=== PATIENT | female | born 2000 | race Caucasian/White ===

== ENCOUNTER 2025-07-09 02:21 | Emergency (ER) | payer MEDICAID, SELFPAY ==
[2025-07-09 02:23] VITALS: BP 123/75; PULSE 105; RESP 15; TEMP 36.7; O2SAT 98; BMI 28.4
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
== END 2025-07-09 03:23 | disposition left against medical advice (07) ==
PROVIDERS: Emergency Provider Emergency Medicine
DX: L29.2 Pruritus vulvae (principal)
CPT/HCPCS: 99281

== ENCOUNTER → 2025-09-19 10:04 | Outpatient (BNV) | payer OTHER, SELFPAY ==
--- NOTE | 2025-09-19 10:04 | A.OFFVIS_ITS ---
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 she is reluctant to have too much information shared between anyone -but states understanding that records are shared between her doctor and I confidentially. She discusses feeling that she wants things to be private. [facility] PCP - appt pending w/ Dr at [facility]. 10/02 - no PMH issues to report MOOD: she mostly needs help w/ anxiety/panic and depression - things are getting very hard for her since she went off medications . these were gotten from [place] doctor. She has picture of medications - on her phone off her patient portal. she occasionally takes her mothers medicaitons (name unknown) - helps her when she is panicking - takes one and she eats and falls asleep and this feels important and helpful. she declines a lot of conversation about her anxiety - I don't like to talk much about it - makes me panic . She will begin w/ therapist who comes to our program as soon as they can establish a date. She very much wants her medications filled as she is finding it hard to function and get to school no covid vaccinations received- never wanted. MEDS:Citalopram 20mg once a day, and hydroxyzine 10mg as needed for panic attacks BC:she was on depo for control but hasn't continued this bc she wasn't getting her period - she doesn't want to discuss control much at this time -once her period resumes she will return for this conversation or will go to gynecology/pcp for more help when she is ready.reassured that likely all is ok but she wants it checked anyway. she had a pap done in may and was given Depo then - it 09/07/25 ETOH: no DRUGS: no (panic attacks from cannabis), CIG: no smoke - but she vapes nicotine Living on her own w/ child - partner occasionally spends the night - she feels it's a good situation for her and that he treats her well. she is not connected w/ the baby's father [facility] Medical History (Updated 09/19/25 @ 10:28 by EVA Zepeda) Moderate recurrent major depression Anxiety disorder, unspecified Panic anxiety syndrome Family History (System 05/03/25 @ 13:22 by Ana Piedra) Mother No problems noted. Father No problems noted. Daughter No problems noted. Brother No problems noted. Brother No problems noted. Brother No problems noted. Brother No problems noted. Sister No problems noted. Sister No problems noted. Review of Systems Const Details: Counseling visit: All systems reviewed & are unremarkable except as noted in HPI and below Reports as per HPI Resp Reports as per HPI GI Reports as per HPI Musc Reports as per HPI Neuro Reports as per HPI Psych Reports as per HPI Physical Exam Const General: cooperative, healthy appearing and no acute distress Nutritional Appearance: well nourished Orientation/consciousness: oriented to person Limitations: no limitations HEENT Other: wnl Eyes Other: wnl Chest Other: easy breathing Resp Effort & Inspection: able to speak in complete sentences Skin Other: normal in appearance Neuro General: oriented to person Psych Other: see HPI Mental Status: mental status grossly normal Speech and movement: Clear speech present Attitude: cooperative Thought process: Normal thought process present Assessment & Plan Assessment & Plan (1) Moderate recurrent major depression: Code(s): F33.1 - Major depressive disorder, recurrent, moderate Category: Medical (2) control counseling: Code(s): Z30.09 - Encounter for other general counseling and advice on contraception Category: Medical (3) Counseling and coordination of care: Code(s): Z71.89 - Other specified counseling Category: Medical (4) Anxiety disorder, unspecified: Code(s): F41.9 - Anxiety disorder, unspecified Category: Medical (5) Panic anxiety syndrome: Code(s): F41.0 - Panic disorder [episodic paroxysmal anxiety] Category: Medical Plan 1) Anxiety/Depression: I will refill her medications and she has given permission for me to talk to her onsite counselor to help her excelsior picker the medications at the pharmacy. she has an appt 10/02 w/ new PCP - since moving to this area and she expects that he will excelsior picker the prescription longer term but really feels bad having stopped meds and needs refills 2) control: she didn't want to have an extensive conversation about BC options as she is worried something is wrong (reassurance that irreg menses can happen w/ depo) she wants PCP to examine her to reassure her that all is ok. discussed that this might not be able to happen on first visit - or a referral might be made. once she has period - she would like to talk about bc. refuses test - feels it's not the issue. 3)consultation w/ her counselor - within the guidelines of her privacy that she has asked for 4)I did clarify w/ her that her doctor and I work under the same medical system and therefore my notes are readable to him and vs vs. She is ok w/ that. Appreciates the communication as long as it is private and for medical support reasons. Medications: New hydroxyzine HCl 10 mg PO ONCE PRN 7 tabs 0RF anxiety citalopram 20 mg PO DAILY 14 tabs 0RF 14 days Coding Level of Care Code New Pt Level 5 (42694) Diagnoses Moderate recurrent major depression F33.1 control counseling Z30.09 Counseling and coordination of care Z71.89 Anxiety disorder, unspecified F41.9 Panic anxiety syndrome F41.0 Additional Codes PHQ-9 - 35942 - PHQ-9 Billing: Yes ([id number]) CRAFFT Assessment Charge - Crafft: CRAFFT [id number] ([id number]) MILAN-7 Assessment Billing - MILAN-7 Assessment Tool: MILAN-7 Assessment 85961 ([id number]) Time Spent (min) 60 Comment extensive counseling and coordination of care PHQ-9 Over the last 2 weeks, how often have you been bothered by any of the following problems? 1. Little interest or pleasure in doing things: several days 2. Feeling down, depressed, or hopeless: not at all 3. Trouble falling or staying asleep, or sleeping too much: more than half the days 4. Feeling tired or having little energy: more than half the days 5. Poor appetite or overeating: several days 6. Feeling bad about yourself - or that you are a failure or have let yourself or your family down: not at all 7. Trouble concentrating on things, such as reading the newspaper or watching television: more than half the days 8. Moving or speaking so slowly that other people could have noticed. Or the opposite - being so fidgety or restless that you have been moving around a lot more than usual: not at all 9. Thoughts that you would be better off or of hurting yourself in some way: not at all Total score: 8 Depression Screening Interpretation: Positive Depression Screening Done: Yes 78394 - PHQ-9 Billing: Yes Source: Developed by Drs. Antoine Reaves, Katelin Acosta, Parag Nj and colleagues, with an educational nazario from [employer]. CRAFFT Screening Tool PART A: In the PAST 12 MONTHS, did you: Drink any alcohol (more than few sips)? (Do not count sips of alcohol taken during family or anglican events.): No Smoke any marijuana or hashish?: No Use anything else to get high? (includes illegal drugs, over the counter/prescription drugs, or things that you sniff/mitchell?): No CRAFFT Assessment Charge Crafft: CRAFFT 71964 MILAN-7 AMB Questionnaire MILAN-7 Feeling nervous, anxious, or on edge: 2 = More than half the days Not being able to stop or control worryin = More than half the days Worrying too much about different things: 1 = Several days Trouble relaxin = More than half the days Being so restless that it is hard to sit still: 3 = Nearly every day Becoming easily annoyed or irritable: 3 = Nearly every day Feeling afraid as if something awful might happen: 1 = Several days Total MILAN-7 score (0-4 normal; 5-9 mild; 10-14 moderate; 15-21 severe): 14 Source: Developed by Drs. Antoine Reaves, Katelin Acosta, Parag Nj and colleagues, with an educational nazario from [employer]. MILAN-7 Assessment Billing MILAN-7 Assessment Tool: MILAN-7 Assessment 41777
== END ==
PROVIDERS: Visit Provider Nurse Practitioner Family
DX: F33.1 Major depressive disorder, recurrent, moderate (principal); Z30.09 Encounter for other general counseling and advice on contraception; Z71.89 Other specified counseling; F41.9 Anxiety disorder, unspecified; F41.0 Panic disorder [episodic paroxysmal anxiety]
CPT/HCPCS: 96127; 96160; 99205

== ENCOUNTER 2025-10-06 13:44 | Outpatient (AMB) | payer OTHER, SELFPAY ==
[2025-10-06 13:47] VITALS: BP 132/86; PULSE 98; TEMP 36.4; O2SAT 97; BMI 35.4
--- NOTE | 2025-10-06 13:47 | A.OFFPC_ITS ---
Vital Signs 10/06/25 13:47 Height 5 ft 1 in Weight 187 lb 2 oz BMI 35.4 BP 132/86 Blood Pressure Location Lt brachial Position Sitting Pulse 98 Pulse Source Pulse Oximeter Temp 97.5 F Temp Source Temporal Artery Scan Pulse Oximetry (%) 97 Oxygen Delivery Method Room Air Intake Visit Reasons: COOKING SHOW HOST-Anxiety Allergies No Known Allergies (No Known Allergies*) Allergy (Verified 10/06/25 13:51) Medication List - Last Reconciled 10/06/25 by Richmond Forman MD hydroxyzine HCl 10 mg PO TID PRN Tobacco use date assessed: 10/06/25 Dental Screening Dental Screen Date: 10/06/25 Did you have a dental visit in the last 12 months?: Yes Did you have a dental problem in the last 6 months where you did not have access to dental care?: No Was dental information given to patient?: Patient has dentist HPI HPI Comments History of Present Illness Details The patient is a 25-year-old female with PMH of anxiety and depression who is presenting to [facility]. She is requesting management of depression and anxiety and evaluation of amenorrhea. The patient has a history of depression and anxiety, for which she was prescribed citalopram and hydroxyzine by a nurse at her school. She reports non- adherence with citalopram, having taken it for only a week because it made her feel uneasy, and requests a prescription for mirtazapine, which her mother takes. She continues to experience panic attacks 3 to 4 times a day, primarily at night, with symptoms of feeling like she is breathing slowly and will stop breathing, which has led to near-syncope. She finds hydroxyzine helpful. The pa jose miguel also reports experiencing paranoia when on the bus or walking at night. The patient reports amenorrhea since a month ago after discontinuing control. She is sexually active with her partner. test in clinic today was negative. Additionally, the patient reports abdominal pain, bloating, acid reflux, and recent weight gain. She notes that bloating can trigger her anxiety and a sensation of dyspnea. She also mentions an episode of chest pain about a month ago that lasted five minutes and reports elbow pain. She is currently in therapy but is not fully satisfied with her therapist. [facility] Medical History (Updated 10/06/25 @ 16:27 by Richmond Forman MD) Moderate recurrent major depression Anxiety disorder, unspecified Panic anxiety syndrome Surgical History (Updated 10/06/25 @ 13:54 by Sintia Gannon [facility]) No pertinent past surgical history Family History (Updated 10/06/25 @ 13:54 by Sintia Gannon [facility]) Mother Mental health disorder Father No problems noted. Daughter No problems noted. Brother No problems noted. Brother No problems noted. Brother No problems noted. Brother No problems noted. Sister No problems noted. Sister Mental health disorder Maternal Grandmother Diabetes Social History (Updated 10/06/25 @ 13:55 by Sintia Gannon [facility]) Household Members: Children Housing: Apartment Alcohol intake: never Patient Tobacco Use Status: Former Tobacco user e-Cigarette/Vaping Use: Currently Using service: No Current occupational status: student Cognitive needs: No Hearing needs: No Vision needs: No Questionnaire PHQ-9 Over the last 2 weeks, how often have you been bothered by any of the following problems? 1. Little interest or pleasure in doing things: several days 2. Feeling down, depressed, or hopeless: not at all 3. Trouble falling or staying asleep, or sleeping too much: more than half the days 4. Feeling tired or having little energy: more than half the days 5. Poor appetite or overeating: several days 6. Feeling bad about yourself - or that you are a failure or have let yourself or your family down: not at all 7. Trouble concentrating on things, such as reading the newspaper or watching television: more than half the days 8. Moving or speaking so slowly that other people could have noticed. Or the opposite - being so fidgety or restless that you have been moving around a lot more than usual: not at all 9. Thoughts that you would be better off or of hurting yourself in some way: not at all Total score: 8 Depression Screening Interpretation: Positive (Psych referral ) Depression Screening Follow-up: Existing condition and In treatment Depression Screening Done: Yes 14793 - PHQ-9 Billing: Yes Source: Developed by Drs. Antoine Reaves, Katelin Acosta, Parag Nj and colleagues, with an educational nazario from [employer]. Thrive Questionnaire Date Thrive assessed: 10/06/25 I am a: Patient What is your living situation today?: I have a steady place to live Within the past 12 months, did the food you bought not last and you didn't have the money to get more?: Never true Within the past 12 months, did you worry whether your food would run out before you got money to buy more?: Never true Do you have trouble paying for medicines?: No Do you have trouble getting transportation to medical appointments?: No Do you have trouble paying your heating and electricity bill?: Yes Do you have trouble taking care of your child, family member or friend?: No Do you have trouble with day-to-day activities such as bathing, preparing meals, shopping, managing finances, etc.?: No Are you currently unemployed and looking for a job?: No Are you interested in more education?: No Currently or been in a relationship where the following occur: No concerns reported THRIVE Score: 1 AUDIT C Alcohol Use Questionnaire (AUDIT-C) 1. How often do you have a drink containing alcohol?: Never 3. How often do you have six or more drinks on one occasion?: Never Total Score: 0 MILAN-7 AMB Questionnaire MILAN-7 Date MILAN - 7 assessed: 10/06/25 Feeling nervous, anxious, or on edge: 2 = More than half the days Not being able to stop or control worryin = More than half the days Worrying too much about different things: 1 = Several days Trouble relaxin = More than half the days Being so restless that it is hard to sit still: 3 = Nearly every day Becoming easily annoyed or irritable: 3 = Nearly every day Feeling afraid as if something awful might happen: 1 = Several days Total MILAN-7 score (0-4 normal; 5-9 mild; 10-14 moderate; 15-21 severe): 14 Source: Developed by Drs. Antoine Reaves, Katelin Acosta, Parag Nj and colleagues, with an educational nazario from [employer]. MILAN-7 Assessment Billing MILAN-7 Assessment Tool: MILAN-7 Assessment 62086 Review of Systems Const Details: Positives besides what was mentioned in HPI are in BOLD Constitutional: No Weight Change, No Fever, No Chills, No Night Sweats, No Fatigue, No Malaise ENT/Mouth: No Hearing Changes, No Ear Pain, No Nasal Congestion, No Sinus Pain, No Hoarseness, No sore throat, No Rhinorrhea, No Swallowing Difficulty Eyes: No Eye Pain, No Swelling, No Redness, No Foreign Body, No Discharge, No Vision Changes Cardiovascular: No Chest Pain, No SOB, No PND, No Dyspnea on Exertion, No Orthopnea, No Claudication, No Edema, No Palpitations Respiratory: No Cough, No Sputum, No Wheezing, No Smoke Exposure, No Dyspnea Gastrointestinal: No Nausea, No Vomiting, No Diarrhea, No Constipation, No Pain, No Heartburn, No Anorexia, No Dysphagia, No Hematochezia, No Melena, No Flatulence, No Jaundice Genitourinary: No Dysmenorrhea, No DUB, No Dyspareunia, No Dysuria, No Urinary Frequency, No Hematuria, No Urinary Incontinence, No Urgency, No Flank Pain, No Urinary Flow Changes, No Hesitancy Musculoskeletal: No Arthralgias, No Myalgias, No Joint Swelling, No Joint Stiffness, No Back Pain, No Neck Pain, No Injury History Skin: No Skin Lesions, No Pruritis, No Hair Changes, No Breast/Skin Changes, No Nipple Discharge Neuro: No Weakness, No Numbness, No Paresthesias, No Loss of Consciousness, No Syncope, No Dizziness, No Headache, No Coordination Changes, No Recent Falls Psych: No Anxiety/Panic, No Depression, No Insomnia, No Personality Changes, No Delusions, No Rumination, No SI/HI/AH/VH, No Social Issues, No Memory Changes, No Violence/Abuse Hx., No Eating Concerns Heme/Lymph: No Bruising, No Bleeding, No Transfusions History, No Lymphadeno tommy Endocrine: No Polyuria, No Polydipsia, No Temperature Intolerance Physical exam (Primary Care) Vital Signs: Last Vital Signs Temp 97.5 F 10/06/25 13:47 Pulse 98 10/06/25 13:47 BP 132/86 10/06/25 13:47 Pulse Ox 97 10/06/25 13:47 Oxygen Delivery Method Room Air 10/06/25 13:47 BMI result Body Mass Index 35.4 Tobacco/Smoking Status: Tobacco use Status Tobacco use date assessed 10/06/25 10/06/25 13:56 Patient Tobacco Use Status Former Tobacco user 10/06/25 13:56 e-Cigarette/Vaping Use Currently Using 10/06/25 13:56 PHQ-9: PHQ-9 Score PHQ-9: Total score 8 10/06/25 13:56 Depression Screening Interpretation: Positive (Psych referral ) Depression Screening Follow-up: Existing condition and In treatment Thrive Assessment: Date of Thrive Assessment Date Thrive assessed 10/06/25 10/06/25 13:56 Currently or been in a relationship where the following occur: No concerns reported Const Other: Pertinent findings are in BOLD GENERAL APPEARANCE NAD, activity normal for age, well developed/ well nourished, no cyanosis, pallor, or diaphoresis. EYES lids/conjunctiva normal. EARS/NOSE/THROAT Mucous membranes moist, nares normal, lips/teeth normal uvula midline without oral pharyngeal erythema, exudate or swelling TMs normal bilaterally. No lymphangitis/lymphedema. HEAD/NECK normocephalic atraumatic, no facial trauma, neck is supple. RESPIRATORY respiratory effort normal, speaks in full sentences, no tripod position, no accessory muscle use. Lungs clear to auscultation without rhonchi, wheezes, rales CARDIAC Regular rate and rhythm, no edema. ABDOMINAL Soft, ND/NT. No evidence of fluid wave. No pulsatile masses on exam, rebound tenderness, Marte sign or pain over Mcburney's point. MUSCLES/EXTREMITIES No abnormal range of motion, no swelling. SKIN Warm, pink and dry. No rashes, dermatoses, petechiae or lesions. NEUROLOGICAL Speech is clear and appropriate. Normal level of consciousness. Gait and coordination are normal. 5/5 strength in all extremities. PSYCH Normal mood and affect. Judgement/competence is appropriate Results AMB Test Urine AMB Test Urine Negative Last Edit by Sintia Gannon CMA on 10/06/25 14:33 Coding Level of Care Code New Pt Level 4 (13605) New Pt Prev Care 18-39yr(20882 Diagnoses Generalized anxiety disorder F41.1 Anxiety disorder type: generalized anxiety disorder Healthcare maintenance Z00.00 Gastroesophageal reflux disease, unspecified whether esophagitis present K21.9 Esophagitis presence: esophagitis presence not specified Amenorrhea N91.2 Irritable bowel syndrome, unspecified type K58.9 Irritable bowel syndrome type: unspecified Additional Codes MILAN-7 Assessment Billing - MILAN-7 Assessment Tool: MILAN-7 Assessment 91667 ([id number]) PHQ-9 - 10801 - PHQ-9 Billing: Yes ([id number]) Time Spent (min) 45 Assessment & Plan Assessment & Plan (1) Anxiety disorder, unspecified: Code(s): F41.9 - Anxiety disorder, unspecified Category: Medical Qualifiers: Anxiety disorder type: generalized anxiety disorder Qualified Code(s): F41.1 - Generalized anxiety disorder Plan: - Patient reports ongoing panic attacks occurring 3-4 times a day, primarily at night. - Continue prescription for hydroxyzine to be taken as needed for anxiety, which the patient finds helpful. - Counseled the patient to use hydroxyzine only as needed due to potential drowsiness. - A referral placed to Psychiatry for further evaluation and comprehensive management. - Encouraged patient to continue with her therapist to learn relaxation exercises and coping strategies for panic attacks. - Advised the patient to discuss with psychiatry regarding therapy options. (2) Healthcare maintenance: Code(s): Z00.00 - Encounter for general adult medical examination without abnormal findings Category: Medical Plan: CBC, CMP, Lipid panel, A1C, TSH w T4, vit D. Ordered today. Shingles 2 doses when >50 yo COVID: two doses. Tdap: Pneumococcal: >50 yo. 18-49 with CKD, lung disease, weakened immune system, Heart disease, DM, cochlear implant. Flu vaccine: Colonoscopy: 45-75 AAA: 65 -75. NI[address] CT lun - 80. NI HPV: manager marketing communications referral placed. HIV: Ordered. HCV: Ordered. Dexa: Not indicated. Mammogram: Not indicated. (3) GERD (gastroesophageal reflux disease): Code(s): K21.9 - Gastro-esophageal reflux disease without esophagitis Category: Medical Qualifiers: Esophagitis presence: esophagitis presence not specified Qualified Code(s): K21.9 - Gastro-esophageal reflux disease without esophagitis Plan: FODMAP diet to assess for potential triggers. (4) Amenorrhea: Code(s): N91.2 - Amenorrhea, unspecified Category: Medical Plan: - The patient reports absence of menses since stopping control last month. - A urine test performed in clinic today was negative. - A referral will be placed to an MEDICARE BILLER for further evaluation of amenorrhea and for routine women's health maintenance. (5) IBS (irritable bowel syndrome): Code(s): K58.9 - Irritable bowel syndrome, unspecified Category: Medical Qualifiers: Irritable bowel syndrome type: unspecified Qualified Code(s): K58.9 - Irritable bowel syndrome without diarrhea Plan: - Patient complains of abdominal pain, bloating, and acid reflux. - The connection between gastrointestinal symptoms and anxiety was discussed, noting that bloating can trigger her anxiety. - Recommended exploring a FODMAP diet to identify and eliminate trigger foods such as dairy, sugar, and bread to potentially improve GI symptoms, anxiety, and aid in weight management. Orders: Orders HIV Ab/Ag Today Z00.00 - Encounter for general adult medical examination without abnormal findings TSH reflex Free T4 Today Z00.00 - Encounter for general adult medical examination without abnormal findings Lipid Panel Today Z00.00 - Encounter for general adult medical examination without abnormal findings AMB HCG Urine Test Today N92.6 - Irregular menstruation, unspecified Complete Blood Count no Diff Today Z00.00 - Encounter for general adult medical examination without abnormal findings Comprehensive Met. Panel Today Z00.00 - Encounter for general adult medical examination without abnormal findings Hepatitis C Antibody Reflex Today Z00.00 - Encounter for general adult medical examination without abnormal findings Hemoglobin A1c Today Z00.00 - Encounter for general adult medical examination without abnormal findings Referrals MEDICARE BILLER Referral Z00.00 - Encounter for general adult medical examination without abnormal findings Psychiatry Referral F41.9 - Anxiety disorder, unspecified Medications: New hydroxyzine HCl 10 mg PO TID PRN 90 tabs 3RF itching Discontinued hydroxyzine HCl Discontinued Reason: Patient no longer taking 10 mg PO ONCE PRN 7 tabs 0RF anxiety citalopram Discontinued Reason: Doctor's Order 20 mg PO DAILY 14 days 14 tabs 0RF
== END 2025-10-06 14:32 | disposition home or self-care (01) ==
LOC: HO.HMCH 13:44
PROVIDERS: Visit Provider Internal Medicine
DX: Z00.00 Encounter for general adult medical examination without abnormal findings (principal); F41.1 Generalized anxiety disorder; K21.9 Gastro-esophageal reflux disease without esophagitis; N91.2 Amenorrhea, unspecified; K58.9 Irritable bowel syndrome, unspecified; N92.6 Irregular menstruation, unspecified

== ENCOUNTER → 2025-10-06 13:44 | Outpatient (BNVA) | payer OTHER, SELFPAY | PROVIDERS: Visit Provider Internal Medicine | DX: Z00.01 Encounter for general adult medical examination with abnormal findings (principal); F41.1 Generalized anxiety disorder; N91.2 Amenorrhea, unspecified; K58.9 Irritable bowel syndrome, unspecified; Z87.891 Personal history of nicotine dependence; Z13.31 Encounter for screening for depression; Z13.39 Encounter for screening examination for other mental health and behavioral disorders | CPT/HCPCS: 81025; 96127; 99385 ==